=== PATIENT | female | born 1990 | race Caucasian/White ===

== ENCOUNTER 2017-10-17 03:45 | Emergency (ER) | payer MEDICAID, OTHER ==
[~2017-10-17] VITALS: Ht 160 cm; Wt 61.0 kg
[2017-10-17] MEDS ORDERED: KETOROLAC 60MG/2ML VIAL IM ONE (06:45)
[2017-10-17] MEDS ORDERED: CYCLOBENZAPRINE 10MG TABLET PO ONE (06:45)
[2017-10-17 07:50] VITALS: BP 107/57
== END 2017-10-17 07:56 | disposition home or self-care (01) ==
LOC: ER 03:46
DX: M43.6 Torticollis (principal); J45.909 Unspecified asthma, uncomplicated; F17.200 Nicotine dependence, unspecified, uncomplicated; Z88.1 Allergy status to other antibiotic agents
CPT/HCPCS: 81025; 96372; 99283; J1885; Z7610

== ENCOUNTER 2018-03-19 15:30 | Emergency (ER) | payer MEDICAID ==
[~2018-03-19] VITALS: Ht 160 cm; Wt 69.0 kg
[2018-03-19 17:11] LABS: BASOPHILS % 0.7 % (0.0-2.0); EOSINOPHILS % 2.8 % (0.0-5.0); HEMOGLOBIN. 14.3 g/dL (12.0-16.0); LYMPHOCYTES % 29.2 % (20.0-50.0); MEAN CORPUSCULAR HEMOGLOBIN 33.3 pg (28.0-32.0); MEAN CORPUSCULAR VOLUME 95.4 fL (81.0-99.0); MEAN PLATELET VOLUME 8.7 fl (7.4-10.4); MONOCYTES % 9.5 % (2.0-8.0); NEUTROPHILS % 57.8 % (40.0-76.0); PLATELET 319 x1000/uL (130-400); RED CELL DISTRIBUTION WIDTH 12.5 % (11.6-14.6)
[2018-03-19 17:14] LABS: CHLORIDE 108 mEq/L (98-107)
[2018-03-19 17:25] LABS: HCG SCREEN NEGATIVE
[2018-03-19 17:31] LABS: CLARITY URINE CLEAR (CLEAR); COLOR URINE YELLOW (YELLOW); KETONES URINE NEGATIVE (NEGATIVE); LEUKOCYTE ESTERASE URINE NEGATIVE (NEGATIVE); NITRITE URINE NEGATIVE (NEGATIVE); OCCULT BLOOD URINE 1+ (NEGATIVE); PH URINE 6.5 (4.5-8.0); PROTEIN URINE NEGATIVE (NEGATIVE); SPECIFIC GRAVITY URINE 1.014 (1.005-1.030); UROBILINOGEN URINE 0.2 E.U./dL (0.2-1.0)
[2018-03-19] MEDS: KETOROLAC 60MG/2ML VIAL IM ONE ×2 (18:55→19:02)
[2018-03-19 19:32] VITALS: BP 130/77
== END 2018-03-19 19:49 | disposition home or self-care (01) ==
LOC: ER 16:54
DX: N92.6 Irregular menstruation, unspecified (principal); N93.9 Abnormal uterine and vaginal bleeding, unspecified; J45.909 Unspecified asthma, uncomplicated; F17.200 Nicotine dependence, unspecified, uncomplicated; Z88.1 Allergy status to other antibiotic agents; Z98.890 Other specified postprocedural states
CPT/HCPCS: 36415; 80048; 81003; 84703; 85025; 96372; 99284; J1885; Z7610

== ENCOUNTER 2023-11-15 07:37 | Emergency (ER) | payer MEDICAID ==
[~2023-11-15] VITALS: Ht 165.1 cm; Wt 81.0 kg
[2023-11-15 07:45] VITALS: O2SAT 100
[2023-11-15] MEDS ORDERED: IBUPROFEN 400MG TABLET PO SCH (10:00)
[2023-11-15] MEDS ORDERED: D-ME473S50 PO (10:09)
[2023-11-15] MEDS ORDERED: IBUP-2029 MT (10:09)
[2023-11-15 10:24] VITALS: BP 136/76; PULSE 98; RESP 18; TEMP 98.7
[2023-11-15] MEDS ORDERED: ASCORBIC ACID 250 MG TABLET PO SCH (21:00)
== END 2023-11-15 10:25 | disposition home or self-care (01) ==
LOC: ER 07:37
DX: J02.9 Acute pharyngitis, unspecified (principal); J45.909 Unspecified asthma, uncomplicated; Z88.1 Allergy status to other antibiotic agents
CPT/HCPCS: 99283

== ENCOUNTER 2024-01-16 15:33 | Emergency (ER) | payer MEDICAID ==
[~2024-01-16] VITALS: Ht 162.6 cm; Wt 66.0 kg
[~2024-01-16 15:33] MED LIST: D-ME473S50 PO; IBUP-2029 MT
[2024-01-16 15:42] VITALS: O2SAT 100
[2024-01-16] MEDS: ACETAMINOPHEN 500MG TABLET PO ONE (16:00)
[2024-01-16] MEDS: KETOROLAC 15MG/ML VIAL IM ONE (16:50)
[2024-01-16] MEDS ORDERED: IBUP-2029 MT (17:28)
[2024-01-16 18:15] VITALS: BP 123/76; PULSE 82; RESP 16; TEMP 98.1
== END 2024-01-16 18:17 | disposition home or self-care (01) ==
LOC: ER 15:33
DX: M54.50 Low back pain, unspecified (principal); J45.909 Unspecified asthma, uncomplicated; Z88.1 Allergy status to other antibiotic agents; V43.52XA Car driver injured in collision with other type car in traffic accident, initial encounter; Y93.89 Activity, other specified; Y92.89 Other specified places as the place of occurrence of the external cause; Y99.8 Other external cause status
CPT/HCPCS: 99283; 81025; 72110; 96372; J1885

== ENCOUNTER 2024-02-06 12:35 | Emergency (ER) | payer MEDICAID ==
[~2024-02-06] VITALS: Ht 165.1 cm; Wt 79.0 kg
[2024-02-06 12:38] VITALS: O2SAT 100
[2024-02-06 13:33] LABS: BASOPHILS % 0.3 % (0.0-2.0); EOSINOPHILS % 0.2 % (0.0-5.0); HEMATOCRIT. 38.4 % (36.0-48.0); HEMOGLOBIN. 13.4 g/dL (12.0-16.0); LYMPHOCYTES % 9.9 % (20.0-50.0); MEAN CORPUSCULAR HEMOGLOBIN 33.2 pg (28.0-32.0); MEAN CORPUSCULAR HGB CONC 34.9 g/dL (31.0-37.0); MEAN CORPUSCULAR VOLUME 95.3 fL (81.0-99.0); MEAN PLATELET VOLUME 8.1 fl (7.4-10.4); MONOCYTES % 7.2 % (2.0-8.0); NEUTROPHILS % 82.4 % (40.0-76.0); PLATELET 278 x1000/uL (130-400); RED BLOOD CELL COUNT 4.03 mill/uL (4.2-5.4); RED CELL DISTRIBUTION WIDTH 13.3 % (11.6-14.6); WHITE BLOOD COUNT 6.4 x1000/uL (4.5-11.0)
[2024-02-06 13:40] LABS: CLARITY URINE CLEAR (CLEAR); COLOR URINE YELLOW (YELLOW); GLUCOSE URINE NEGATIVE (NEGATIVE); KETONES URINE NEGATIVE (NEGATIVE); LEUKOCYTE ESTERASE URINE NEGATIVE (NEGATIVE); NITRITE URINE NEGATIVE (NEGATIVE); OCCULT BLOOD URINE 2+ (NEGATIVE); PH URINE 5.5 (4.5-8.0); PROTEIN URINE TRACE (NEGATIVE); SPECIFIC GRAVITY URINE 1.025 (1.005-1.030)
[2024-02-06 13:53] LABS: ALANINE AMINOTRANSFERASE 34 IU/L (10-49); ALBUMIN 4.4 g/dL (3.2-4.8); ASPARTATE AMINOTRANSFERASE 28 IU/L (<34); BILIRUBIN TOTAL 0.4 mg/dL (0.1-1.0); CARBON DIOXIDE 26 mEq/L (21-32); CHLORIDE 106 mEq/L (98-107); CREATININE 0.7 mg/dL (0.6-1.0); GLUCOSE 89 mg/dL (70-105); POTASSIUM 3.6 mEq/L (3.5-5.1); PROTEIN TOTAL 7.7 g/dL (6.0-8.3); SODIUM 137 mEq/L (136-145); UREA NITROGEN BLOOD 10 mg/dL (9-23)
[2024-02-06 14:15] LABS: BACTERIA URINE 1+; MUCUS URINE 1+ /lpf (< = 2+); SQUAMOUS EPITHELIAL CELL URINE 2+ /lpf (RARE/1+)
[2024-02-06 14:17] LABS: WBC URINE 0-2 /hpf (0-2)
[2024-02-06 16:16] VITALS: BP 139/88; PULSE 92; RESP 18; TEMP 98.7
== END 2024-02-06 16:47 | disposition home or self-care (01) ==
LOC: ER 12:35
DX: R10.31 Right lower quadrant pain (principal); R50.9 Fever, unspecified; R11.2 Nausea with vomiting, unspecified; J45.909 Unspecified asthma, uncomplicated; Z98.890 Other specified postprocedural states
CPT/HCPCS: 36415; 74176; 76705; 76857; 80053; 81003; 81025; 85025; 93005; 99284

== ENCOUNTER 2024-04-19 19:44 | Emergency (ER) | payer SELFPAY ==
[~2024-04-19] VITALS: Ht 160 cm; Wt 74.0 kg
[2024-04-19 20:13] VITALS: O2SAT 100
[2024-04-19] MEDS ORDERED: PARO10TA74 MT (22:09)
[2024-04-19 22:45] VITALS: BP 121/81; PULSE 61; RESP 16; TEMP 98.3
[2024-04-19] MEDS: LORAZEPAM 0.5MG TABLET PO ONE (22:45)
== END 2024-04-19 22:45 | disposition home or self-care (01) ==
LOC: ER 19:44
DX: F41.1 Generalized anxiety disorder (principal); J45.909 Unspecified asthma, uncomplicated; F32.A Depression, unspecified; Z88.0 Allergy status to penicillin
CPT/HCPCS: 71045; 99283; Z7610

== ENCOUNTER 2025-04-21 12:27 | Emergency (ER) | payer BC, OTHER ==
[~2025-04-21] VITALS: Ht 160 cm; Wt 74.0 kg
[~2025-04-21 12:27] MED LIST changes: +PARO10TA74 MT
[2025-04-21 12:41] VITALS: TEMP 36.7; O2SAT 100
[2025-04-21 13:11] LABS: CHLORIDE 109 mEq/L (98-107); SODIUM 141 mEq/L (136-145)
[2025-04-21 13:12] LABS: CARBON DIOXIDE 28 mEq/L (21-32)
[2025-04-21 13:13] LABS: CALCIUM 9.2 mg/dL (8.7-10.4)
[2025-04-21 13:20] LABS: CREATININE 0.9 mg/dL (0.6-1.0); GLUCOSE 99 mg/dL (70-105); UREA NITROGEN BLOOD 13 mg/dL (9-23)
[2025-04-21 13:22] LABS: BASOPHILS % 0.6 % (0.0-2.0); EOSINOPHILS % 1.1 % (0.0-5.0); HEMATOCRIT. 39.5 % (36.0-48.0); HEMOGLOBIN. 13.6 g/dL (12.0-16.0); LYMPHOCYTES % 25.2 % (20.0-50.0); MEAN CORPUSCULAR HGB CONC 34.4 g/dL (31.0-37.0); MEAN CORPUSCULAR VOLUME 95.8 fL (81.0-99.0); MEAN PLATELET VOLUME 8.6 fl (7.4-10.4); MONOCYTES % 7.3 % (2.0-8.0); NEUTROPHILS % 65.8 % (40.0-76.0); PLATELET 335 x1000/uL (130-400); RED BLOOD CELL COUNT 4.13 mill/uL (4.2-5.4); RED CELL DISTRIBUTION WIDTH 12.9 % (11.6-14.6); WHITE BLOOD COUNT 8.7 x1000/uL (4.5-11.0)
[2025-04-21 13:36] LABS: TROPONIN I HIGH SENSITIVITY < 4 ng/L (3.0-34)
[2025-04-21 15:03] LABS: HCG SCREEN NEGATIVE
[2025-04-21 16:47] VITALS: BP 101/68; PULSE 66; RESP 16; O2SAT 100
== END 2025-04-21 16:48 | disposition home or self-care (01) ==
LOC: ER 12:27
DX: N92.0 Excessive and frequent menstruation with regular cycle (principal); F32.A Depression, unspecified; F41.9 Anxiety disorder, unspecified; J45.909 Unspecified asthma, uncomplicated; Z79.899 Other long term (current) drug therapy; Z88.1 Allergy status to other antibiotic agents
CPT/HCPCS: 36415; 76830; 76856; 80048; 81025; 84484; 84703; 85025; 86850; 86900; 99284